=== PATIENT | male | born 1970 | race African-American/Black ===

== ENCOUNTER 2020-03-24 10:05 | Emergency (ER) | payer MEDICAID, SELFPAY ==
[2020-03-24 10:14] VITALS: BP 214/119; PULSE 68; RESP 18; TEMP 36.6; O2SAT 98
--- NOTE | 2020-03-24 10:17 | ECG_ITS ---
Measurements Intervals [place] Rate: 62 P: 8 MS: 161 QRS: 45 QRSD: 108 T: 40 QT: 405 QTc: 411 Interpretive Statements SINUS RHYTHM VOLTAGE CRITERIA FOR LVH BORDERLINE ECG Electronically Signed On 03-24-2020 10:44:38 CIRCUIT CLERK by Devin Chino D.O.
[2020-03-24 10:38] LABS: Basophils Percent Auto 0.8 % (0.2-1.2); Eosinophils Percent Auto 0.8 % (0-4.4); Hematocrit 46.4 % (42.0-52.0); Hemoglobin 15.7 g/dL (14.0-18.0); Immature Granulocyte Absolute 0.01 K/mm3 (0.00-0.031); Immature Granulocyte Percent A 0.2 % (0-0.5); Lymphocytes Absolute Auto 1.74 K/mm3 (0.9-3.2); Lymphocytes Percent Auto 36.5 % (18.3-44.2); Mean Corpuscular HGB Conc 33.8 g/dl (32-36); Mean Corpuscular Hemoglobin 29.5 pg (26-34); Mean Corpuscular Volume 87.2 fl (80-100); Mean Platelet Volume 9.5 fl (7.4-10.4); Monocytes Absolute Auto 0.4 K/mm3 (0.1-0.6); Monocytes Percent Auto 7.3 % (2.6-8.5); Neutrophils Absolute Auto 2.6 K/mm3 (1.3-6.7); Neutrophils Percent Auto 54.4 % (45.5-73.1); Platelet Count Result 305 k/mm3 (150-375); Red Blood Count 5.32 M/mm3 (4.6-6.20); Red Cell Distribution Width 13.2 % (11.5-14.5); White Blood Count 4.8 K/mm3 (4.5-10.0)
[2020-03-24] MEDS: hydrALAZINE HCL 20 MG/ML VIAL 10 MG IV PUSH (10:40)
[2020-03-24 10:52] LABS: Anion Gap 10 mmol/L (8-16); Blood Urea Nitrogen 18 mg/dL (9-20); Calcium 9.4 mg/dL (8.4-10.2); Carbon Dioxide 30 mmol/L (22-30); Chloride 101 mmol/L (98-107); Estimated CRCL calculation 59 ml/min; Estimated Glomerular Filt Rate > 60; Glucose 91 mg/dL (75-110); Potassium 3.5 mmol/L (3.4-5.0); Sodium 141 mmol/L (137-145)
--- NOTE | 2020-03-24 11:41 | ED.GENADULT ---
HPI - General Adult General Chief complaint: Recheck/Abnormal Lab/Rx Stated complaint: high blood pressure Time Seen by Provider: 03/24/20 10:11 Source: patient Mode of arrival: ambulatory Limitations: no limitations History of Present Illness HPI narrative: 50-year-old with a history of hypertension here with complaints of elevated blood pressure since last few days. Patient went to his primary doctor and was later referred here to the ER. Patient states that he ran out of his insurance almost a year ago and was unable to afford to get his blood pressure medicine. He presently denies any headache, chest pain, shortness of breath. Onset (ago): day(s) (2) Related Data Allergies Allergy/AdvReac Type Severity Reaction Status Date / Time TUSSINS Allergy Mild Hives Uncoded 03/24/20 10:17 CHLORPHENIRAMINE POLISTIREX Allergy Unknown Hives Uncoded 03/24/20 10:17 Review of Systems Review of Systems: All systems reviewed & are unremarkable except as noted in HPI and below Constitutional: Constitutional: Reports no additional constitutional complaints Eyes: Eyes: Reports no additional eye complaints ENT: Reports system reviewed and no additional complaints, except as documented Cardiovascular: Cardiovascular: Reports as per HPI Respiratory: Respiratory: Reports as per HPI Gastrointestinal: Gastrointestinal: Reports no additional gastrointestinal complaints Musculoskeletal: Musculoskeletal: Reports no additional musculoskeletal complaints PMFSH Past Medical History Medical History Screening cholesterol level Screening PSA (prostate specific antigen) Social History Social History Smoking status: Never smoker Alcohol intake: never Exam Narrative: Exam Narrative: GENERAL: Well-appearing, well-nourished, and in no acute distress. HEAD: Normocephalic, atraumatic. EYES: PERRLA and EOMI. NECK: Supple. CHEST: Clear to auscultation. No respiratory distress. HEART: Regular rate and rhythm. No murmur heard. Normal peripheral pulses. ABDOMEN: Soft, nontender, nondistended, normal active bowel sounds. EXTREMITIES: Normal range of motion. No edema. SKIN: Warm, dry, no rash. NEURO: No focal deficits. Alert and oriented x3. PSYCH: Normal mood and affect. Course Course Emergency Course: Patient is informed about his lab work his blood work and his pressure has been gradually coming down. He does feel comfortable at this time. Advised him to take medication as prescribed and follow-up with his doctor. Vital Signs Vital signs: Vital Signs Temperature 36.6 C 03/24/20 10:14 Pulse Rate 68 03/24/20 10:14 Respiratory Rate 18 03/24/20 10:14 Blood Pressure 214/119 H 03/24/20 10:14 Pulse Oximetry 98 03/24/20 10:14 Temperature 36.6 C 03/24/20 10:14 Pulse Rate 68 03/24/20 10:14 Respiratory Rate 18 03/24/20 10:14 Blood Pressure 214/119 H 03/24/20 10:14 Pulse Oximetry 98 03/24/20 10:14 Medical Decision Making Vital Signs Vital Signs: Vital Signs Temperature 36.6 C 03/24/20 10:14 Pulse Rate 68 03/24/20 10:14 Respiratory Rate 18 03/24/20 10:14 Blood Pressure 214/119 H 03/24/20 10:14 Pulse Oximetry 98 03/24/20 10:14 Temperature 36.6 C 03/24/20 10:14 Pulse Rate 68 03/24/20 10:14 Respiratory Rate 18 03/24/20 10:14 Blood Pressure 214/119 H 03/24/20 10:14 Pulse Oximetry 98 03/24/20 10:14 Lab Data Result diagrams: 03/24/20 10:28 03/24/20 10:28 Labs: Lab Results 03/24/20 03/24/20 Range/Units 10:28 10:28 WBC 4.8 (4.5-10.0) K/mm3 RBC 5.32 (4.6-6.20) M/mm3 Hgb 15.7 (14.0-18.0) g/dL Hct 46.4 (42.0-52.0) % MCV 87.2 (80-100) fl MCH 29.5 (26-34) pg MCHC 33.8 (32-36) g/dl RDW 13.2 (11.5-14.5) % Plt Count 305 (150-375) k/mm3 MPV 9.5 (7.4-10.4) fl Immature Gran % (Auto) 0.2 (0-0.5)
== END 2020-03-24 12:03 | disposition home or self-care (01) ==
PROVIDERS: Emergency Provider Family Medicine; PCP Emergency Medicine
DX: I16.0 Hypertensive urgency (principal); R94.31 Abnormal electrocardiogram [ECG] [EKG]
CPT/HCPCS: 36415; 80048; 85025; 93005; 96374; 99284; J0360

== ENCOUNTER 2020-08-11 14:17 | Outpatient (CLI) | payer OTHER, SELFPAY | END 2020-08-11 14:18 | disposition home or self-care (01) | LOC: ANHCOVIDVC 14:17 | PROVIDERS: PCP Emergency Medicine | DX: Z23 Encounter for immunization (principal) | CPT/HCPCS: 0001A; 91300 ==